=== PATIENT | male | born 1960 | race Caucasian/White ===

== ENCOUNTER 2017-07-30 22:14 | Inpatient (IN) | payer BC, OTHER ==
[~2017-07-30] VITALS: Ht 167.6 cm; Wt 116.5 kg
[~2017-07-30 22:14] MED LIST: CLC100 PO; CYCL10TA6 PO; DOCU-105 PO; LORA-741 PO; METH4PAK4 PO; MRLP17 PO; NRN300 PO; RXC5 PO; SNK PO; SODI1ENE16 PR; TRAM-10 PO; [UNRECOGNIZED DRUG - REMARK] TOP; [UNRECOGNIZED DRUG - REMARK] TOP
--- NOTE | 2017-07-30 22:58 | EMERGENCY ROOM VISIT NOTE ---
History Report prepared by Zulma: Anatoly Sanchez Under the Supervision of: Dr. Darshan Mayorga M.D. First contact with patient: 22:36 Chief Complaint: MENTAL HEALTH EVALUATION Stated Complaint: NERVOUS BREAKDOWN, ANXIETY History of Present Illness The patient is a 57 year old male who presents to the Emergency Room with complaints of a nervous breakdown episode occurring tonight. The patient states that he had a nervous breakdown last year as well. He notes that he has been very stressed for the past few days due to financial and family reasons. He reports that he feels like he might have another nervous breakdown due to these problems. The patient denies any suicidal ideations. He notes that he currently takes antidepressants. He reports that he has a history of prostate cancer and lymphoma, but is currently in remission. Source of History: patient Onset: tonight Position: head Quality: other (nervous breakdown) Timing: other (an episode) Note: He denies any suicidal ideations. Review of Systems See HPI for pertinent positives & negatives. A total of 10 systems reviewed and were otherwise negative. Past Medical & Surgical Medical Problems: (1) Back pain (2) Lymphoma (3) Prostate cancer Family History No pertinent family history stated. Social History Smoking Status: Never Smoker Marital Status: Housing Status: lives with family Occupation Status: employed Current/Historical Medications Scheduled Docusate Sodium (Docusate Sodium), 100 MG PO BID Docusate Sodium (Dulcolax Stool Softener), 1 CAP PO BID Gabapentin (Gabapentin), 300 MG PO TID Lorazepam (Ativan), 0.5 MG PO HS Methylprednisolone Dosepak (Medrol Dosepak), 0 PO DAILY Polyethylene (Miralax), 17 GM PO BID Senna (Senna Lax), 17.2 MG PO HS [Shampoo Perscribed], 1 APPLN TOP 3XWK [Skin Cream Perscrib], 1 APPLN TOP HS Scheduled PRN Cyclobenzaprine Hcl (Flexeril), 10 MG PO TID PRN for Muscle Spasms Oxycodone HCl (Oxycodone HCl), 5 MG PO Q4H PRN for Pain Sodium Phosphates (Enema Yicnf-Av-Rra), 132 ML W[place] DAILY PRN for Constipation Tramadol (Ultram), 50 MG PO Q6 PRN for Pain Allergies Coded Allergies: No Known Allergies (Unverified , 06/24/15) Physical Exam Vital Signs Date Time Temp Pulse Resp B/P (MAP) Pulse Ox O2 Delivery O2 Flow Rate FiO2 07/30/17 22:28 37.0 99 18 149/90 94 Room Air Physical Exam GENERAL: Patient is depressed appearing and in no acute distress. HEENT: No acute trauma, normocephalic atraumatic, mucous membranes moist, no nasal congestion, no scleral icterus. NECK: No stridor, no adenopathy, no meningismus, trachea is midline. LUNGS: No dyspnea. Clear to auscultation and equal bilaterally. No wheeze, no rhonchi. HEART: Regular rate and rhythm. No murmurs, rubs, gallops appreciated. ABDOMEN: Soft, nontender, bowel sounds positive, no masses appreciated, no peritonitis. BACK: No midline tenderness, no CVA tenderness EXTREMITIES: Normal motion all extremities, no cyanosis, no edema. NEUROLOGIC: Alert and oriented, no acute motor or sensory deficits, no focal weakness, cranial nerves grossly intact. PSYCH: Denies suicidal ideations, denies homicidal ideations, admits depression. SKIN: No rash, no jaundice, no diaphoresis. Medical Decision & Procedures Laboratory Results 07/30/17 23:07 Red Blood Count 5.74, Mean Corpuscular Volume 85.5, Mean Corpuscular Hemoglobin 29.3, Mean Corpuscular Hemoglobin Concent 34.2, Mean Platelet Volume 8.9, Neutrophils (%) (Auto) 60.5, Lymphocytes (%) (Auto) 27.6, Monocytes (%) (Auto) 8.4, Eosinophils (%) (Auto) 2.5, Basophils (%) (Auto) 0.5, Neutrophils # (Auto) 3.95, Lymphocytes # (Auto) 1.80, Monocytes # (Auto) 0.55, Eosinophils # (Auto) 0.16, Basophils # (Auto) 0.03 07/30/17 23:07 Test 07/30/17 23:00 07/30/17 23:07 Urine Color YELLOW Urine Appearance CLEAR (CLEAR) Urine pH 5.0 (4.5-7.5) Urine Specific [place] 1.024 (1.000-1.030) Urine Protein TRACE (NEG) Urine Glucose (UA) NEG (NEG) Urine Ketones NEG (NEG) Urine Occult Blood NEG (NEG) Urine Nitrite NEG (NEG) Urine Bilirubin NEG (NEG) Urine Urobilinogen NEG (NEG) Urine Leukocyte Esterase NEG (NEG) Urine WBC (Auto) 1-5 /hpf (0-5) Urine RBC (Auto) 0-4 /hpf (0-4) Urine Hyaline Casts (Auto) 1-5 /lpf (0-5) Urine Epithelial Cells (Auto) 0-5 /lpf (0-5) Urine Bacteria (Auto) NEG (NEG) Urine Opiates Screen NEG (NEG) Urine Methadone, Qualitative NEG (NEG) Urine Barbiturates NEG (NEG) Urine Phencyclidine (PCP) Level NEG (NEG) Ur Amphetamine/Methamphetamine NEG (NEG) MDMA (Ecstasy) Screen NEG (NEG) Urine Benzodiazepines Screen NEG (NEG) Urine Cocaine Metabolite NEG (NEG) Urine Marijuana (THC) NEG (NEG) White Blood Count 6.52 K/uL (4.8-10.8) Red Blood Count 5.74 M/uL (4.7-6.1) Hemoglobin 16.8 g/dL (14.0-18.0) Hematocrit 49.1 % (42-52) Mean Corpuscular Volume 85.5 fL (80-100) Mean Corpuscular Hemoglobin 29.3 pg (25-34) Mean Corpuscular Hemoglobin Concent 34.2 g/dl (32-36) Platelet Count 186 K/uL (130-400) Mean Platelet Volume 8.9 fL (7.4-10.4) Neutrophils (%) (Auto) 60.5 % Lymphocytes (%) (Auto) 27.6 % Monocytes (%) (Auto) 8.4 % Eosinophils (%) (Auto) 2.5 % Basophils (%) (Auto) 0.5 % Neutrophils # (Auto) 3.95 K/uL (1.4-6.5) Lymphocytes # (Auto) 1.80 K/uL (1.2-3.4) Monocytes # (Auto) 0.55 K/uL (0.11-0.59) Eosinophils # (Auto) 0.16 K/uL (0-0.5) Basophils # (Auto) 0.03 K/uL (0-0.2) RDW Standard Deviation 42.0 fL (36.4-46.3) RDW Coefficient of Variation 13.5 % (11.5-14.5) Immature Granulocyte % (Auto) 0.5 % Immature Granulocyte # (Auto) 0.03 K/uL (0.00-0.02) Anion Gap 7.0 mmol/L (3-11) Est Creatinine Clear Calc Drug Dose 112.5 ml/min Estimated GFR () 110.5 Estimated GFR (Non- 95.4 BUN/Creatinine Ratio 13.7 (10-20) Calcium Level 9.4 mg/dl (8.5-10.1) Total Bilirubin 0.3 mg/dl (0.2-1) Aspartate Amino Transf (AST/SGOT) 23 U/L (15-37) Alanine Aminotransferase (ALT/SGPT) 33 U/L (12-78) Alkaline Phosphatase 71 U/L (45-117) Total Protein 7.9 gm/dl (6.4-8.2) Albumin 4.1 gm/dl (3.4-5.0) Globulin 3.8 gm/dl (2.5-4.0) Albumin/Globulin Ratio 1.1 (0.9-2) Thyroid Stimulating Hormone (TSH) 4.660 uIu/ml (0.300-4.500) Salicylates Level < 1.7 mg/dl (2.8-20) Acetaminophen Level < 2 ug/ml (10-30) Ethyl Alcohol mg/dL < 3.0 mg/dl (0-3) Laboratory results as reviewed by me. ED Course 2240: The patient was evaluated in room A4. A complete history and physical exam was performed. 2342: I reevaluated and updated the patient. He admits to suicidal thoughts yesterday. He is also afraid that he will become upset and harm his if he were to go home. He requests admission. The ed case manager has already discussed it with the . The notes that she has already left the house. 0100: The patient was admitted to [address] [place] [address]. Medical Decision Differential: Mood Disorder, Overdose, Infectious, Electrolyte Abnormality, Cardiac, Hepatic, Endocrine, Toxicologic, Neurologic, amongst other pathologies entertained. 57 yr old male arrives via private vehicle noting he is concerned he is entering a mental breakdown due to severe stress he has been under for a vast array of issues. Admits suicidal thoughts yesterday as well as concern that he may snap and hurt someone. He is wishing for inpatient admission. Medically clear and stable. Will bring in to [address] [place] [address] for further treatment/evaluation. Blood Pressure Screening Patient's blood pressure: Elevated blood pressure Blood pressure disposition: Elevated BP felt to be situational Impression Primary Impression: Depression Additional Impressions: Acute anxiety Suicidal ideation Scribe Attestation The scribe's documentation has been prepared under my direction and personally reviewed by me in its entirety. I confirm that the note above accurately reflects all work, treatment, procedures, and medical decision making performed by me. Departure Information Referrals Avel Benavides, D.O. (PCP) Patient Instructions [facility] Problem Qualifiers
[2017-07-30 23:24] LABS: BASO % 0.5 %; BASO ABS # 0.03 K/uL (0-0.2); EOS % 2.5 %; EOS ABS # 0.16 K/uL (0-0.5); HEMATOCRIT 49.1 % (42-52); HEMOGLOBIN 16.8 g/dL (14.0-18.0); IG# 0.03 K/uL (0.00-0.02); LYMPH % 27.6 %; MEAN CELL VOLUME 85.5 fL (80-100); MEAN CORPUSCULAR HEMOGLOBIN 29.3 pg (25-34); MEAN CORPUSCULAR HGB CONC 34.2 g/dl (32-36); MEAN PLATELET VOLUME 8.9 fL (7.4-10.4); MONO % 8.4 %; MONO ABS # 0.55 K/uL (0.11-0.59); NEUT % 60.5 %; NEUT ABS # 3.95 K/uL (1.4-6.5); PLATELET COUNT 186 K/uL (130-400); RED CELL DISTRIBUTION WIDTH CV 13.5 % (11.5-14.5); WHITE BLOOD COUNT 6.52 K/uL (4.8-10.8)
[2017-07-30 23:42] LABS: ALBUMIN 4.1 gm/dl (3.4-5.0); CALCIUM 9.4 mg/dl (8.5-10.1); CREATININE 0.88 mg/dl (0.60-1.40); POTASSIUM 3.9 mmol/L (3.5-5.1)
[2017-07-30 23:51] LABS: TOTAL PROTEIN 7.9 gm/dl (6.4-8.2)
[2017-07-31] MEDS ORDERED: NURSING VERBAL MED ORDER ONE (00:30)
[2017-07-31] MEDS ORDERED: OMEP20CA9 PO (00:52)
[2017-07-31] MEDS ORDERED: FLX/5 PO (00:52)
[2017-07-31] MEDS ORDERED: TRAZ50TA35 PO (00:52)
[2017-07-31] MEDS ORDERED: hydrOXYzine HCL 25 MG TAB ONE (02:07)
--- NOTE | 2017-07-31 02:27 | NUR ---
Henok did not want to take his hs ativan as he had taken a prn dose of hs vistaril for sleep aid. Addendum: 07/31/17 at 0320 by Leah Kim RN henok appeared to be asleep on 0 rounds.
[2017-07-31] MEDS ORDERED: SODIUM CHLORIDE 0.65% NA SOLN 45 ML (OCEAN) PRN (02:30)
[2017-07-31] MEDS ORDERED: ACETAMINOPHEN 325 MG TAB PO PRN (02:30)
[2017-07-31] MEDS ORDERED: ALUMINUM/MAGNESIUM SUSP 30 ML UDC PO PRN (02:30)
[2017-07-31] MEDS ORDERED: LORAZEPAM 0.5 MG TAB PO SCH ×2 (02:30→22:00)
[2017-07-31] MEDS ORDERED: hydrOXYzine HCL 25 MG TAB PO PRN ×2 (02:30)
[2017-07-31] MEDS ORDERED: BISMUTH SUBSALICYLATE PER ML OMNICELL CHARGE PO PRN (02:30)
[2017-07-31] MEDS ORDERED: MAGNESIUM HYDROXIDE SUSP 30 ML UDC PO PRN (02:30)
--- NOTE | 2017-07-31 02:30 | NUR ---
admission orders and clinical information reviewed.
[2017-07-31 03:16] VITALS: BP 136/97; PULSE 90; TEMP 37; Ht 167.6 cm; Wt 116.5 kg
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
--- NOTE | 2017-07-31 09:32 | NUR ---
Initial social history assessment completed with pt . Pt currently resides with his in [facility] . Pt reported that he and his moved into the area 2 years ago due to pt being offered a job locally . Pt reported that he is currently employed and works from home . Pt reported that he has one step-son and stated that his step-son " is supportive of him " . Pt stated that he was adopted and that he has no knowledge of his biological parents . Pt denied all current suicidal/homicidal ideation . Pt reported that he was diagnosed with prostate cancer but stated that his cancer is currently in remission . Pt reported that he and his have " alot of marital conflict " and that " it is an extremely stressful household " . Pt reported that he feels his " treats him terribly " and that he is the sole financial support for the household which has placed an abundant amount of stress upon him . Pt stated that he is having difficulty coping with the stress in his home . Pt reported that he is also dealing with the stress of being a cancer survivor and that " his hma with cancer has left him with different views on life " and the reason he accepted his new job was because he felt that " it was his calling " . Pt stated that he regrets taking the job due to the stress it has caused him . Pt agreed to a family meeting with his .
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
[2017-07-31 10:24] VITALS: BP_SYST 147; BP_SYST 151; BP_DIAS 82; BP_DIAS 92; PULSE 75; TEMP 36.5
--- NOTE | 2017-07-31 10:31 | NUR ---
Spoke with pt's via phone . Pt's stated that pt is constantly yelling at her and " creates a lot of anxiety in the household " . Pt's stated that she " is thinking about leaving him " and reported that pt " sleeps 10 hours daily " . Pt's stated that their marriage has been " extremely unhappy as of late " and she believes that " pt will never change " . Pt's agreed to come in for a family session on 08/01/2017 .
[2017-07-31] MEDS: BuPROPion XL 150 MG TABCR PO SCH (11:20)
--- NOTE | 2017-07-31 13:37 | NUR ---
Pt signed his treatment plan and review. He denies active suicidal ideation or active homicidal ideation but admits to passive thoughts prior to admission. Pt is at the 'breaking point" with his marriage. States he feels blamed for everything by and everything is his fault. He has thought about getting a divorce but understands the financial impact on both of them. He is willing to have his come in for a mtg and this is planned for tomorrow. He is pleasant and is motivated to stay here and work on his issues. Pt completed his TR assessment.
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
[2017-07-31 23:26] VITALS: PULSE 82; O2SAT 97
--- NOTE | 2017-08-01 01:20 | NUR ---
24 hour chart orders reviewed
[2017-08-01 06:42] VITALS: BP_SYST 121; BP_DIAS 79; BP_DIAS 83; PULSE 61; PULSE 67; TEMP 36.5
[2017-08-01] MEDS: BuPROPion XL 150 MG TABCR PO SCH (08:18)
--- NOTE | 2017-08-01 09:59 | Psychiatric Progress Notes ---
Progress Note Date of Service Aug 01, 2017. Interval History 57 yo male with a history of CA who presents with recurrent vegetative symptoms in the context of legal and marital stressors. Chief Complaint "I'm bored". Subjective Patient was seen & assessed interval progress reviewed with Treatment Team. The patient is agitated this AM in anticipation of family meeting with . He wants to talk about many things with her including that fact that she blames him for 100% of their problems. 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 He acknowledges that he has been irritable and showing this by yelling and throwing the paper. He wants to remain in the relationship and find a way to improve it. He continues to report passive SI saying that as he reviews his options for the future, that suicide is one. He says that he slept a great deal yesterday, and last night, but does not feel rested. Review of Systems Constitutional: + fatigue ENT: No hearing loss, No unusual epistaxis, No nasal symptoms, No sore throat, No tinnitus, No dental problems, No trouble swallowing, No problem reported Respiratory: No cough, No sputum, No wheezing, No shortness of breath, No dyspnea on exertion, No dyspnea at rest, No hemoptysis, No problem reported Cardiovascular: No chest pain, No orthopnea, No PND, No edema, No claudication , No palpitations, No problem reported Abdomen: No pain, No nausea, No vomiting, No diarrhea, No constipation, No GI bleeding, No problem reported Musculoskeletal: No joint pain, No muscle pain, No swelling, No calf pain, No problem reported Neurologic: No memory loss, No paralysis, No weakness, No numbness/tingling, No vertigo, No balance problems, No problem reported Psychiatric: + depression symptoms Integumentary: No rash, No itch, No new/changing skin lesions, No color change , No bleeding, No problem reported Sleep Information Total Hours of Sleep: 6.00 Meal Information Percent of Breakfast Consumed: 100 Percent of Lunch Consumed: 100 Percent of Dinner Consumed: 100 Mental Status Exam During interview pt is: alert and oriented Appearance: appropriately dressed, appropriately groomed Eye contact is: good Motor behavior is: no abnormal motor movements Speech: normal in rate, rhythm & volume, other (angry) Affect: depressed, irritable Mood is: depressed, irritable Thought process: clear, coherent Thought content: reality based without delusions Suicidal thought are: present, Plan: denied, Intent: denied Homicidal thoughts are: denied Hallucinations: denies auditory, denies visual Cognition: memory grossly intact, attention grossly intact, language grossly intact Intelligence estimated to be: consistent with level of education Insight: limited Judgement: limited Impression Adjusting to the structure and support of the milieu. is irritable today in anticipation of his family meeting with at 1000. Is tolerating initiation of Wellbutrin. Will continue current meds and plan. Plan (1) Major depressive disorder, recurrent episode with anxious distress 07/31-- The patient is admitted to [facility] ([facility] ) on q 15 min checks (behavioral with suicide precautions) for safety. The patient will participate in group, recreational and milieu therapies and will be offered additional individual and family sessions as clinically appropriate. risks/benefits/alternatives reviewed re: retrial of antidepressant. Patient agreed to trial of Wellbutrin 150 mg XL qam. 08/01 - Continue current meds - Family meeting with this AM. (2) Sleep apnea 07/31 encouraged more regular use of CPAP due to daytime fatigue (only using about 50% of time at home), other causes of fatigue could include thyroid dysfunction, repeat TSH with thyroid panel in am. Patient believes due for lipid panel. Discharge / Aftercare Planning Primary Care Physician: Name: Dr Benavides Therapist: Name: None Custodial Operations Manager: Name: None Visit Code E&M Code: 74352 Inventory Assets Strengths: intelligent, longstanding marriage Needs: outpatient providers, marital counseling Risk Factors Assessment Male: Yes : Yes /single/: No Substance use disorders: No Previous attempt: No Protective Factors Assessment Employed: Yes Data Vital Signs Last 24 Hrs: Date Time Temp Pulse Resp B/P (MAP) Pulse Ox O2 Delivery O2 Flow Rate FiO2 08/01/17 06:42 36.5 61 16 121/79 67 121/83 07/31/17 23:26 82 97 07/31/17 10:24 36.5 75 16 147/82 151/92 Meds Administered Last 24 Hrs: Meds Administered (Past 24Hrs) Medications (Trade) Dose Ordered Sig/Amy Route Start Time Stop Time Status Last Admin Dose Admin Hydroxyzine HCl (Vistaril Tab) 50 mg STK-MED ONCE .ROUTE 07/31/17 02:07 07/31/17 02:08 DC 07/31/17 02:13 50 MG Bupropion HCl (Wellbutrin-Xl Tab) 150 mg QAM PO 07/31/17 11:00 08/30/17 10:59 08/01/17 08:18 150 MG Lab Results Last 24 Hrs: Last 24 Hours Test 08/01/17 08:08 Fasting Glucose 90 mg/dl Triglycerides Level 214 mg/dl Cholesterol Level 183 mg/dl HDL Cholesterol 34 mg/dl LDL Cholesterol, Calculated 106 mg/dl VLDL Cholesterol, Calculated 43 mg/dl Cholesterol/HDL Ratio 5.4 Thyroid Stimulating Hormone (TSH) 2.100 uIu/ml Free Thyroxine 0.86 ng/dl Free Triiodothyronine 4.03 pg/ml
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
--- NOTE | 2017-08-01 14:18 | NUR ---
Pt had a mtg with his today and when asked about it he had few words to say stating that he thought the mtg went okay whereas the social staff worker's note does not imply this at all. He seems in fairly good spirits. He denies active suicidal ideation or homicidal ideation. He checked his phone to make sure he was listening to messages from people involved with his work. Presently resting.
--- NOTE | 2017-08-01 22:10 | NUR ---
Pt has not been attending unit programming this shift. He spent his free time in his room reading or relaxing in bed. Pt did eat his dinner with his peers, but did not seem to have spontaneous conversations with them. He did spend some time on the phone this evening. Pt will remain on checks for safety.
--- NOTE | 2017-08-02 02:59 | NUR ---
24 hour chart orders reviewed.
--- NOTE | 2017-08-02 05:07 | NUR ---
Patient requested and received tylenol 650 mg po for complaint of a headache he rates 7/10.
[2017-08-02 06:52] VITALS: BP_SYST 133; BP_SYST 138; BP_DIAS 88; BP_DIAS 95; PULSE 77; PULSE 80; TEMP 36.6
[2017-08-02] MEDS: BuPROPion XL 150 MG TABCR PO SCH (09:16)
--- NOTE | 2017-08-02 10:10 | NUR ---
Pt denies active homicidal or suicidal ideation. 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
--- NOTE | 2017-08-02 10:26 | NUR ---
Pt requested and signed a 72 hr notice to withdraw from treatment at 1220 today. He states he has gotten what he needed from his stay here, some time away from home to think. He again says that the mtg with his was a time where they both could clear the air and he felt the mtg gave them a chance to do this. He went to comm. mtg but not to the aroma therapy grp. Wants to be discharged today or tomorrow and will speak with the clinician about this.
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
--- NOTE | 2017-08-03 02:06 | NUR ---
24 hour chart orders reviewed.
[2017-08-03 06:50] VITALS: BP_SYST 126; BP_SYST 128; BP_DIAS 81; BP_DIAS 83; PULSE 78; PULSE 82; TEMP 36.7
[2017-08-03] MEDS ORDERED: BuPROPion XL 300 MG TABCR PO SCH (09:00)
[2017-08-03] MEDS ORDERED: WLLXL300 PO (09:18)
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
--- NOTE | 2017-08-03 10:20 | NUR ---
Pt is in agreement with his discharge plan and waives the 4 hr. window to appeal.
--- NOTE | 2017-08-03 10:50 | NUR ---
Pt disch home. Disch instructions provided, verbalized understanding. Belongings returned. Pts affect is brighter. Feeling more positive. Said he misses his . Disch summary: see treatment team review.
== END 2017-08-03 10:50 | disposition home or self-care (01) | DRG 885 ==
LOC: C.EDB 22:15 → C.MHU 07-31 00:37
PROVIDERS: ADMIT Psychiatry & Neurology Child & Adolescent Psychiatry; ATTEND Psychiatry & Neurology Child & Adolescent Psychiatry
DX: F33.9 Major depressive disorder, recurrent, unspecified (principal); F41.9 Anxiety disorder, unspecified; G47.30 Sleep apnea, unspecified; Z63.0 Problems in relationship with spouse or partner; Z65.3 Problems related to other legal circumstances; Z79.899 Other long term (current) drug therapy; Z85.46 Personal history of malignant neoplasm of prostate; Z85.72 Personal history of non-Hodgkin lymphomas

== ENCOUNTER 2017-09-08 12:17 | Emergency (ER) | payer OTHER ==
[~2017-09-08] VITALS: Ht 170.2 cm; Wt 120.2 kg
[~2017-09-08 12:17] MED LIST changes: -CLC100 PO; -CYCL10TA6 PO; -DOCU-105 PO; +FLX/5 PO; -LORA-741 PO; -METH4PAK4 PO; -MRLP17 PO; -NRN300 PO; +OMEP20CA9 PO; -RXC5 PO; -SNK PO; -SODI1ENE16 PR; -TRAM-10 PO; +WLLXL300 PO; -[UNRECOGNIZED DRUG - REMARK] TOP; -[UNRECOGNIZED DRUG - REMARK] TOP
[2017-09-08 12:31] VITALS: Ht 170.2 cm; Wt 120.2 kg
[2017-09-08] MEDS ORDERED: HYDROCODONE/ACETAMIN 5/325MG TAB PO ONE (13:15)
[2017-09-08] MEDS ORDERED: BUPR-83 PO (13:29)
--- NOTE | 2017-09-08 13:37 | DIAGNOSTIC IMAGING REPORT ---
R SHOULDER MIN 2 VIEWS ROUTINE CLINICAL HISTORY: Right shoulder pain. COMPARISON: None FINDINGS: Alignment of the right shoulder is anatomic. There is no fracture or suspicious lesion. There is moderate osteoarthritis of the right acromioclavicular joint. There is minimal glenohumeral joint osteoarthritis. IMPRESSION: 1. No acute fracture or dislocation of the right shoulder. 2. Moderate osteoarthritis of the right acromioclavicular joint. Electronically signed by: Junaid Schuler M.D. 09/08/2017 1:35 PM Dictated Date/Time: 09/08/2017 1:34 PM
[2017-09-08] MEDS ORDERED: HYDR-5688 PO (14:11)
[2017-09-08] MEDS ORDERED: METH4PAK PO (14:11)
[2017-09-08 14:18] VITALS: BP 151/90; PULSE 89; TEMP 36.3; O2SAT 96
--- NOTE | 2017-09-09 16:10 | EMERGENCY ROOM VISIT NOTE ---
ED Visit Note First contact with patient: 12:40 Chief Complaint: Right arm pain. History of Present Illness: Mr. Hendrickson is a 57-year-old white male who ambulates into the ED accompanied by his complaining of right upper extremity pain. Patient reports he has been having ongoing pain that has gradually increased in intensity since Sunday, 5 days ago. He reports his pain starts over the within the bicipital groove and the mid lateral position of the deltoid. Patient reports that he was seen at a local urgent care center earlier today and was encouraged to come to the ED because of his symptoms. Currently he reports he is nearly pain free when at rest in the shoulder is not palpated. When he attempts to do any movements of the shoulder but primarily with shoulder flexion and abduction he develops severe pain. This pain starts in the area the bicipital groove and radiates down into the forearm. He has difficulty describing his discomfort. He rates his discomfort 7/10. Rest relieves most of his discomfort. He has not taken any medication for pain prior to arrival at the hospital. Associated with his pain he reports intermittently he has tingling in the fingers. He denies fevers, chills, sweats, neck pain/stiffness, previous significant injuries or surgeries, recent trauma, extremity weakness/numbness. Review of Systems: As noted above in history of present illness. 8 body systems were reviewed and found to be negative as noted above. Past Medical History: Unspecified skin disorder, unspecified cancer 2. Current Medications: Omeprazole, Wellbutrin, Cyclobenzaprine. Allergies to Medications: Patient denies. Social History: Patient is currently employed; he lives with his and feels safe in his home environment; he denies tobacco and alcohol use. Physical Examination: Vital Signs: Date Time Temp Pulse Resp B/P (MAP) Pulse Ox O2 Delivery O2 Flow Rate FiO2 09/08/17 12:31 36.3 89 18 151/90 96 Room Air GENERAL: 57-year-old male in mild to moderate distress due to pain, nontoxic- appearing, afebrile and hemodynamically stable. NEUROLOGICAL: Awake, alert and oriented to person, place and time. Answering questions appropriately and following commands. Normal gait. Good hand eye coordination. No focal motor sensory deficits. SKIN: Warm, dry and pink. Right Upper Arm: Over the lateral aspect in the arm in the mid trapezius area patient has a nickel-sized and shaped area of mild erythema. There is no edema. This area is mildly tender to palpation. The area is not indurated or fluctuant. There is no local lymphangitis. HEENT: Atraumatic and normocephalic. BACK: No tenderness over the bony cervical and thoracic spine. No tenderness or spasm paraspinous muscles. Full range of motion of the cervical spine. RIGHT UPPER EXTREMITY: No gross bony deformity. No tenderness over the clavicle or scapula. Minimal tenderness over the lateral aspect of the humeral head and in the area of the mid deltoid. Severe tenderness throughout the bicipital groove. I do not appreciate any bony deformity or crepitus and there is no local edema. Patient refused to do range of motion exercises at the level of the shoulder due to pain. With the shoulder stabilize patient does have full range of motion in flexion and extension of the elbow which also creates pain in his shoulder. Full range of motion in pronation and supination of forearm, full range of motion in flexion, extension and radial and ulnar deviation of the wrist. 4/5 muscle strength in flexion and extension of the elbow, pronation and supination of forearm and opposition of the fingers. Distal radial and ulnar pulses are intact. Capillary refill is brisk. He was able to distinguish light sensations through all dermatomes of the lower arm and hand. ED Course: Patient is assessed as noted above. Patient's medication list was reviewed. Patient was given one Ubly 5/325 mg tablet by mouth for pain. Right Shoulder X-Rays: Were read by myself and the radiologist showing no acute fractures or dislocations. Moderate osteoarthritis of the right acromioclavicular joint was noted and minimal glenohumeral joint osteoarthritis was noted by the radiologist. Patient was placed in a sling. Patient was educated about today's findings and instructed on his treatment plan ; he verbalized understanding and agreement with this plan. Clinical Impression: Bicipital tendinitis. Right shoulder pain. Decision-Making: Initially my differential diagnosis I considered bicipital tendinitis, deltoid bursitis, rotator cuff injury, biceps muscle injury, acromioclavicular joint separation, osteoarthritis and other causes. Disposition: Patient discharged home in stable condition accompanied by his ; prior to departure he was reassessed and subjectively reported he was feeling slightly better and rated his discomfort 6/10. Plan: Comfort measures including rest, ice, sling use were all discussed with the patient. Patient was prescribed a Medrol Dosepak and instructed on its use. Patient was placed on the sliding pain medication scale of ibuprofen, acetaminophen and Ubly; his name was checked on the state database and no red flags were noted and he was given appropriate narcotic precautions. Patient is encouraged to follow-up with his primary care provider for recheck and possible referral to orthopedics. Patient was encouraged return ED for worsening/uncontrolled pain, redness and swelling and area of the pain, arm weakness/numbness or any new/concerning symptoms.
== END 2017-09-08 14:19 | disposition home or self-care (01) ==
LOC: C.EDB 12:19 → C.EDD 14:19
DX: M75.21 Bicipital tendinitis, right shoulder (principal); Z85.9 Personal history of malignant neoplasm, unspecified; Z79.899 Other long term (current) drug therapy